=== PATIENT | female | born 1985 | race Hispanic/Latino ===

== ENCOUNTER 2019-10-28 10:07 | Emergency (ER) | payer OTHER ==
[2019-10-28] MEDS ORDERED: KETOROLAC TROMETHAMINE 30MG/ML ONE (10:42)
[2019-10-28] MEDS ORDERED: LORAZEPAM 2 MG/ML 1 ML VIAL ONE (10:42)
[2019-10-28] MEDS ORDERED: TETANUS/DIPHTHERIA TOXOID [ADULT] 0.5 ML VIAL IM ONE (10:42)
== END 2019-10-28 14:04 | disposition home or self-care (01) ==
LOC: EDH 10:07
DX: S16.1XXA Strain of muscle, fascia and tendon at neck level, initial encounter (principal); V49.49XA Driver injured in collision with other motor vehicles in traffic accident, initial encounter; Y93.89 Activity, other specified; Y92.488 Other paved roadways as the place of occurrence of the external cause; Y99.8 Other external cause status
CPT/HCPCS: 70450; 71045; 72125; 90471; 90714; 96374; 96375; 99285; J1885; J2060

== ENCOUNTER 2021-09-12 15:18 | Emergency (ER) | payer OTHER ==
[~2021-09-12] VITALS: Ht 160 cm; Wt 74.8 kg
[2021-09-12] MEDS ORDERED: CEFTRIAXONE 1G VIAL IM ONE (15:30)
[2021-09-12] MEDS ORDERED: ACETAMINOPHEN WITH CODEINE 1 TAB TAB PO ONE (15:30)
[2021-09-12] MEDS ORDERED: AMOX1TAB16 PO (15:34)
[2021-09-12] MEDS ORDERED: ACET-2247 PO (15:34)
[2021-09-12] MEDS ORDERED: LIDOCAINE HCL-MPF 1% 2ML VIAL ONE (15:59)
[2021-09-12] MEDS ORDERED: NEOMYCIN/POLYMYXIN/HC OTIC SUSP 10ML BOTTLE AU SCH (16:00)
[2021-09-12 16:30] VITALS: BP 124/76
== END 2021-09-12 16:59 | disposition home or self-care (01) ==
LOC: EDH 15:18
DX: H66.93 Otitis media, unspecified, bilateral (principal); F17.210 Nicotine dependence, cigarettes, uncomplicated; Z71.6 Tobacco abuse counseling
CPT/HCPCS: 82948; 96372; 99284; J0696; J3490